=== PATIENT | male | born 1995 | race Two or more races ===

== ENCOUNTER 2025-05-03 23:45 | Emergency (ER) | payer SELFPAY ==
[~2025-05-03] VITALS: Ht 167.6 cm; Wt 82.0 kg
[2025-05-03 23:50] VITALS: O2SAT 100
[2025-05-04 00:25] LABS: BASOPHILS % 0.3 % (0.0-2.0); EOSINOPHILS % 1.4 % (0.0-5.0); HEMATOCRIT. 53.4 % (42.0-52.0); HEMOGLOBIN. 17.9 g/dL (14.0-18.0); LYMPHOCYTES % 58.2 % (20.0-50.0); MEAN PLATELET VOLUME 9.3 fl (7.4-10.4); MONOCYTES % 5.9 % (2.0-8.0); NEUTROPHILS % 34.2 % (40.0-76.0); PLATELET 284 x1000/uL (130-400); RED BLOOD CELL COUNT 6.06 mill/uL (4.7-6.1); RED CELL DISTRIBUTION WIDTH 12.7 % (11.6-14.6)
[2025-05-04 00:36] LABS: CREATININE 1.0 mg/dL (0.6-1.3); UREA NITROGEN BLOOD 7 mg/dL (9-23)
[2025-05-04 00:37] LABS: ETHANOL BLOOD 261 mg/dL (<10); PROTEIN TOTAL 8.9 g/dL (6.0-8.3)
[2025-05-04 00:38] LABS: ASPARTATE AMINOTRANSFERASE 50 IU/L (<34); BILIRUBIN DIRECT < 0.1 mg/dL (<=3.0)
[2025-05-04 00:39] LABS: BILIRUBIN TOTAL 0.2 mg/dL (0.1-1.0)
[2025-05-04 02:58] LABS: *AMPHETAMINES SCREEN URINE NEGATIVE (NEGATIVE); *BARBITURATES SCREEN URINE NEGATIVE (NEGATIVE); *BENZODIAZEPINES SCREEN URINE NEGATIVE (NEGATIVE); *COCAINE SCREEN URINE NEGATIVE (NEGATIVE); CANNABINOID URINE SCREEN NEGATIVE (NEGATIVE); ECSTASY MDMA SCREEN URINE NEGATIVE (NEGATIVE); METHADONE URINE SCREEN NEGATIVE (NEGATIVE); OPIATES URINE SCREEN NEGATIVE (NEGATIVE); PHENCYCLIDINE URINE SCREEN NEGATIVE (NEGATIVE)
[2025-05-04] MEDS ORDERED: HYDROXYZINE 25MG TABLET PO PRN (11:45)
[2025-05-04 15:44] VITALS: BP 120/83; PULSE 80; RESP 18; TEMP 36.3; O2SAT 98
[2025-05-04] MEDS ORDERED: TRAZODONE HCL 50MG TABLET PO SCH (21:00)
== END 2025-05-04 15:50 ==
LOC: ER 05-04 00:01 → EDBD 05-04 00:01 → ER 05-04 15:50
DX: R45.851 Suicidal ideations (principal); Z63.4 Disappearance and death of family member; Z79.899 Other long term (current) drug therapy; Z20.822 Contact with and (suspected) exposure to COVID-19
CPT/HCPCS: 36415; 80048; 80076; 80305; 80307; 80320; 80329; 85025; 87426; 93005; 99285; G0480